=== PATIENT | male | born 1990 | race Caucasian/White ===

== ENCOUNTER 2018-11-16 17:02 | Emergency (ER) | payer MEDICAID ==
[~2018-11-16] VITALS: Ht 175.3 cm; Wt 86.2 kg
[2018-11-16 17:05] VITALS: BP 124/71
[2018-11-16] MEDS ORDERED: LIDOCAINE 1% ***ER ONLY *** 10 MG/ML VIAL INJ ONE (17:25)
--- NOTE | 2018-11-16 17:31 | NUR ---
ERMD AT BEDSIDE
[2018-11-16] MEDS ORDERED: LIDOCAINE MPF 1% 5mL VIAL ONE (17:40)
--- NOTE | 2018-11-16 17:55 | NUR ---
C/O REDNESS/SWELLING TO L FOREARM X4 DAYS. PT WAS SEEN BY PCP AND GIVEN ABX BUT HE FEELS IT IS GETTING WORSE. DENIES N/V/D/FEVER. L FOREARM APPEARS RED AND SWOLLEN, PAINFUL TO TOUCH. SKIN IS PINK/WARM/DRY; AAOX4 WITH EVEN AND STEADY GAIT; VSS; PATIENT POSITIONED FOR COMFORT; HOB ELEVATED; BEDRAILS UP X1; BED DOWN. ER MD MADE AWARE OF PT STATUS.
[2018-11-16 18:00] VITALS: BP 127/89
--- NOTE | 2018-11-16 18:00 | NUR ---
Patient discharged with v/s stable. Written and verbal after care instructions given and explained. Patient alert, oriented and verbalized understanding of instructions. Ambulatory with steady gait. All questions addressed prior to discharge. ID band removed. Patient advised to follow up with PMD. Rx of MOTRIN, BACTRIM, NORCO given. Patient educated on indication of medication including possible reaction and side effects. Opportunity to ask questions provided and answered. DRESSING ASSESSED, PT DENIES NUMBNESS/TINGLING, MOTOR/SENSORY FUNCTIONS INTACT.
== END 2018-11-16 18:00 | disposition home or self-care (01) ==
LOC: MED 17:02
DX: L03.114 Cellulitis of left upper limb (principal); F17.210 Nicotine dependence, cigarettes, uncomplicated
CPT/HCPCS: 10060; 99283; J2001